=== PATIENT | male | born 1975 | race Caucasian/White ===

== ENCOUNTER → 2023-12-29 12:09 | Outpatient (REF) | payer OTHER, SELFPAY | LOC: RAD 12:09 | PROVIDERS: ATTENDING PHYSICIAN Physician Assistant | DX: M25.552 Pain in left hip (principal) | CPT/HCPCS: 73502 ==

== ENCOUNTER → 2025-01-24 14:24 | Outpatient (REF) | payer BC, SELFPAY | LOC: RCS 14:24 | PROVIDERS: ATTENDING PHYSICIAN Family Medicine | DX: R07.89 Other chest pain (principal) | CPT/HCPCS: 93017; 93350; Q9950 ==

== ENCOUNTER → 2025-03-06 15:00 | Outpatient (REF) | payer BC, SELFPAY | LOC: RAD 15:00 | PROVIDERS: ATTENDING PHYSICIAN Family Medicine | DX: R07.2 Precordial pain (principal) | CPT/HCPCS: 71046 ==

== ENCOUNTER → 2025-03-26 16:37 | Outpatient (REF) | payer BC, SELFPAY | LOC: RAD 16:37 | PROVIDERS: ATTENDING PHYSICIAN Physician Assistant | DX: M79.89 Other specified soft tissue disorders (principal); M79.601 Pain in right arm | CPT/HCPCS: 93971 ==

== ENCOUNTER → 2025-03-27 12:53 | Outpatient (REF) | payer BC, SELFPAY | LOC: RAD 12:53 | PROVIDERS: ATTENDING PHYSICIAN Physician Assistant; FAMILY PHYSICIAN Family Medicine | DX: M54.2 Cervicalgia (principal); M79.641 Pain in right hand; M25.511 Pain in right shoulder | CPT/HCPCS: 72050; 73030; 73110; 73130 ==